=== PATIENT | female | born 1990 | race Caucasian/White ===

== ENCOUNTER 2023-10-27 18:53 | Emergency (ER) | payer OTHER, SELFPAY ==
[2023-10-27 18:54] VITALS: BP 126/84; PULSE 70; RESP 15; TEMP 36.6; O2SAT 100
--- NOTE | 2023-10-27 20:13 | ED.GENADULT ---
HPI - General Adult General Chief complaint: Headache Stated complaint: migraine Time Seen by Provider: 10/27/23 19:54 Source: patient Mode of arrival: ambulatory Limitations: no limitations History of Present Illness HPI narrative: This is a 33-year-old female who presents to the ED with chief complaint of migraine headache for the last couple of weeks. Reports that has been intermittent in nature. She has been taking ibuprofen which helps for couple of hours but is hoping lasts over the last couple of days. She reports history of 1-2 migraines a year but has never been seen for this before. Endorses malaise but denies cough, congestion or other URI symptoms. Denies head injury, syncope, numbness, weakness, vision change, neck pain. Related Data Allergies Allergy/AdvReac Type Severity Reaction Status Date / Time No Known Allergies Allergy Verified 10/27/23 20:41 Review of Systems Review of Systems: All systems as dictated in HPI Exam Narrative: GENERAL: Well-appearing, well-nourished, and in no acute distress. HEAD: Normocephalic, atraumatic. EYES: PERRLA and EOMI. ENT: Nares clear, no rhinorrhea or epistaxis. Mucous membranes moist. Oropharynx without tonsillar hypertrophy exudate or other lesions. NECK: Supple. No adenopathy or masses. No meningeal signs CHEST: No respiratory distress. Clear to auscultation. No wheezes rales or rhonchi HEART: Regular rate and rhythm. No murmur heard. Normal peripheral pulses. ABDOMEN: Soft, nontender, nondistended, normal active bowel sounds. MSK: Normal range of motion. No edema. SKIN: Warm, dry, no rash. NEURO: Alert and oriented x4. No focal deficits. PSYCH: Normal mood and affect. Course Vital Signs Vital signs: Vital Signs Temperature 97.9 F 10/27/23 18:54 Pulse Rate 70 10/27/23 18:54 Respiratory Rate 15 10/27/23 18:54 Blood Pressure 126/84 10/27/23 18:54 Pulse Oximetry 100 10/27/23 18:54 Oxygen Delivery Room Air 10/27/23 18:54 Temperature 97.9 F 10/27/23 18:54 Pulse Rate 84 10/27/23 22:10 Respiratory Rate 20 10/27/23 22:10 Blood Pressure 119/82 10/27/23 22:10 Pulse Oximetry 100 10/27/23 22:10 Oxygen Delivery Room Air 10/27/23 18:54 Medical Decision Making MDM Narrative Medical decision making narrative: This is a 33-year-old female who presents to the ED with chief complaint of migraine headache. Vitals are normal. Exam is benign. Neurologic exam fully intact. No red flag signs for headache. Lab work is unremarkable. No signs of meningismus. Improved dramatically with headache cocktail here. Ready to go home. Pt will be discharged in stable condition. Return precautions given and supportive measures discussed. Pt is understanding and agreeable with plan for discharge and follow-up with PCP. Vital Signs Vital Signs: Vital Signs Temperature 97.9 F 10/27/23 18:54 Pulse Rate 70 10/27/23 18:54 Respiratory Rate 15 10/27/23 18:54 Blood Pressure 126/84 10/27/23 18:54 Pulse Oximetry 100 10/27/23 18:54 Oxygen Delivery Room Air 10/27/23 18:54 Temperature 97.9 F 10/27/23 18:54 Pulse Rate 84 10/27/23 22:10 Respiratory Rate 20 10/27/23 22:10 Blood Pressure 119/82 10/27/23 22:10 Pulse Oximetry 100 10/27/23 22:10 Oxygen Delivery Room Air 10/27/23 18:54 Lab Data 10/27/23 20:58 10/27/23 20:58 Labs: Lab Results 10/27/23 Range/Units 20:58 WBC 8.9 (4.5-10.0) K/mm3 RBC 4.79 (4.2-5.4) M/mm3 Hgb 15.0 (12.0-15.0) g/dL Hct 44.7 (37.0-47.0) % MCV 93.3 (80-100) fl MCH 31.3 (26-34) pg MCHC 33.6 (32-36) g/dl RDW 11.5 (11.5-14.5) % Plt Count 315 (150-375) k/mm3 MPV 10.4 (7.4-10.4) fl Immature Gran % (Auto) 0.3 (0-0.5) % Neut % (Auto) 53.7 (45.5-73.1) % Lymph % (Auto) 39.5 (18.3-44.2) % Miller % (Auto) 4.9 (2.6-8.5) % Eos % (Auto) 1.1 (0-4.4) % Baso % (Auto) 0.5 (0.2-1.2) % Lymph
[2023-10-27] MEDS: Please add drug allergy info to patient profile. 1 EACH XX (20:41)
[2023-10-27] MEDS: SODIUM CHLORIDE 0.9% IV 1,000 ML 999 ML IV CONT (20:41)
[2023-10-27] MEDS: KETOROLAC 15 MG/ML VIAL (*BKC) IV PUSH (20:48)
[2023-10-27] MEDS: PROCHLORPERAZINE EDISYLATE 10 MG/2 ML VIAL IV PUSH (20:52)
[2023-10-27] MEDS: diphenhydrAMINE HCl INJ 50 MG/ML VIAL 25 MG IV PUSH (20:55)
[2023-10-27 21:02] LABS: Basophils Percent Auto 0.5 % (0.2-1.2); Eosinophils Absolute Auto 0.1 K/mm3 (0-0.3); Eosinophils Percent Auto 1.1 % (0-4.4); Hematocrit 44.7 % (37.0-47.0); Immature Granulocyte Absolute 0.03 K/mm3 (0.00-0.031); Immature Granulocyte Percent A 0.3 % (0-0.5); Lymphocytes Percent Auto 39.5 % (18.3-44.2); Mean Corpuscular HGB Conc 33.6 g/dl (32-36); Mean Corpuscular Hemoglobin 31.3 pg (26-34); Mean Corpuscular Volume 93.3 fl (80-100); Mean Platelet Volume 10.4 fl (7.4-10.4); Monocytes Absolute Auto 0.4 K/mm3 (0.1-0.6); Monocytes Percent Auto 4.9 % (2.6-8.5); Neutrophils Absolute Auto 4.8 K/mm3 (1.3-6.7); Neutrophils Percent Auto 53.7 % (45.5-73.1); Platelet Count Result 315 k/mm3 (150-375); Red Blood Count 4.79 M/mm3 (4.2-5.4); Red Cell Distribution Width 11.5 % (11.5-14.5); White Blood Count 8.9 K/mm3 (4.5-10.0)
[2023-10-27 21:13] LABS: Alanine Aminotransferase 19 U/L (6-35); Albumin Level 5.2 g/dL (3.5-5.1); Alkaline Phosphatase 76 U/L (38-126); Anion Gap 11 mmol/L (8-16); Aspartate Amino Transferase 25 U/L (14-36); Bilirubin,Total 0.8 mg/dL (0.2-1.3); Blood Urea Nitrogen 8 mg/dL (7-17); Calcium 9.4 mg/dL (8.4-10.2); Carbon Dioxide 28 mmol/L (22-30); Chloride 100 mmol/L (98-107); Estimated CRCL calculation 114 ml/min; Estimated Glomerular Filt Rate > 60; Glucose 101 mg/dL (65-110); Potassium 3.6 mmol/L (3.4-5.0); Sodium 139 mmol/L (137-145)
[2023-10-27 22:10] VITALS: BP 119/82; PULSE 84; RESP 20; O2SAT 100
== END 2023-10-27 22:17 | disposition home or self-care (01) ==
PROVIDERS: Emergency Provider Physician Assistant
DX: G43.909 Migraine, unspecified, not intractable, without status migrainosus (principal)
CPT/HCPCS: 36415; 80053; 85025; 96361; 96374; 96375; 99284; J0780; J1200; J1885; J7030